=== PATIENT | male | born 1965 | race Caucasian/White ===

== ENCOUNTER → 2017-11-24 | Outpatient (CLI) | payer OTHER ==
--- NOTE | 2017-11-25 05:32 | SPLIT NIGHT TECHNICIAN REPORT ---
[facility] Split Night Polysomnogram - Stamp Classifier Report Study date: 11/24/2017 Referring Physician: Jorje Handy M.D. Name: AUBREE LEE Stamp Classifier: ANYA Campos. Date of : 1965 Height: 52 years, Height 5' 10" Sex: Male Weight: 227 lbs Age: 52 BMI: Medications: 32.57 Metformin 1000 mg, Glimepiride 4 mg, Losartan 25 mg, Cetirizine 10 mg, Fluticasone Propionete 100 mg, Sildenafil Citrate 20-60 mg, Multi Vitamins, Iron 65 mg, Magnesium 500 mg, Potassium Gluconate 550 mg, Patient History 52 yr. old male here for a diagnostic sleep study in room 5. Patient has a history of ELIZ but could never find the correct interface to tolerate CPAP. ESS 12/28. Parameters Monitored NPSG: E1-M2, E2-M1, Fp1-M2, Fp2-M1, F3-M2, F4-M2, F4-M1, C3-M2, C4-M2, C4-M1, O1-M2, O2-M2, O2-M1, T3-M2, T4-M1, P3-M2, P4-M1, CHIN1, CHIN2, HR, EKG, Legs, PFLOW, SNOR, FLOW, CFLOW, Tidal Volume, THOR, ABDO, SpO2, PLTH, CPRESS, ETCO2 Wave, ETCO2, pH SLEEP SUMMARY DATA DIAGNOSTIC TREATMENT Lights Out: 10:36:51 PM 12:44:51 AM Lights On: 12:30:21 AM 5:19:21 AM Total Recording Time (TRT): 113.5 min. 274.5 min. Total Sleep Time (TST): 78.5 min. 217.0 min. NREM Time: 78.5 min. 170.0 min. REM Time: 0.0 min. 47.0 min. Sleep Period Time (SPT): 95.5 min. 258.5 min. Sleep Efficiency (SE): 69 % 79 % Sleep Latency: 17.5 min. 9.5 min. Arousal Index: 43.6 16.0 PAP Treatment Levels: 4, 8/4, 9/5, 10/6, 11/7, 12/7, 13/8, 14/9 * Optimal Pressure(s) SLEEP STAGING DATA DIAGNOSTIC TREATMENT Duration (min) TST % Duration (min) TST % Stage Wake: 35.0 min. -- 57.5 min. -- WASO: 17.5 min. -- 41.5 min. -- NREM: 78.5 min. 100 % 170.0 min. 78 % Stage N1: 28.0 min. 36 % 36.0 min. 17 % Stage N2: 50.5 min. 64 % 114.0 min. 53 % Stage N3: 0.0 min. 0 % 20.0 min. 9 % REM: 0.0 min. 0 % 47.0 min. 22 % POSITIONAL DATA Event Count Index Event Count Index Supine: 70 90 67 71.2 Supine NREM: 70 90.0 66 71.4 Supine REM: N/A N/A 1 60 Non-Supine: 39 73.6 29 10.5 Non-Supine NREM: 39 73.6 29 14.7 Non-Supine REM: N/A N/A 0 0.0 AROUSAL SUMMARY DATA: Event Count Index Event Count Index Apnea Arousals: 26 49.7 41 22.1 Hypopnea Arousals: 17 13.0 6 1.7 Snore Arousals: 8 6.1 3 0.8 PLM Arousals: 6 4.6 4 1.1 Non-Specific Arousals: 1 0.8 4 1.1 Total Arousals: 57 43.6 58 16.0 MYOCLONUS (PLM) Event Count Index Event Count Index PLM: 26 19.9 29 8.0 PLM AROUSAL: 6 4.6 4 1.1 PLM W/O AROUSAL 26 19.9 25 6.9 PLM W/RESP EVENT 6 0.0 3 0.0 MYOCLONUS (PLM) Event Count Index Event Count Index LM: 4 30.6 52 14.4 LM AROUSAL: 4 3.1 2 0.6 LM W/O AROUSAL LM W/RESP EVENT LM NON SPECIFIC 30 22.9 57 15.8 HEART RATE DATA DIAGNOSTIC TREATMENT Sleep (bpm): 60 56 REM (bpm): N/A 93 NREM (bpm): 93 94 Tachycardia Count: 0 0 Tachycardia Duration: 0.00 0 Bradycardia Count: 0 0 Bradycardia Duration: 0.00 0 DIAGNOSTIC PORTION TREATMENT PORTION RESPIRATORY DATA Event Count Index Event Count Index AHI: -- 83.3 -- 26.3 RDI: -- 83.3 -- 27 Obstructive Apnea: 29 22.2 28 7.7 Central Apnea: 31 23.7 50 13.8 Mixed Apnea: 5 3.8 2 0.6 Hypopnea: 44 33.6 15 4.1 RERA: 0 0.0 1 0.3 Total Apneas: 65 49.7 80 22.1 RESPIRATORY DATA REM NREM SLEEP REM NREM SLEEP Supine Position: Obstructive Apneas: N/A 21 21 1 20 21 Central Apneas: N/A 12 12 0 34 34 Mixed Apneas: N/A 3 3 0 2 2 Hypopneas: N/A 34 34 0 10 10 RERA N/A 0 0 0 0 0 Total Supine Events: N/A 70 70 1 66 67 Supine AHI: N/A 90.0 90 60 71.4 71.2 Supine RDI: N/A 90.0 90.0 60.0 71.4 71.2 REM NREM SLEEP REM NREM SLEEP Non-Supine Position: Obstructive Apneas: N/A 8 8 0 7 7 Central Apneas: N/A 19 19 0 16 16 Mixed Apneas: N/A 2 2 0 0 0 Hypopneas: N/A 10 10 0 5 5 RERA N/A 0 0 0 1 1 Total Supine Events: N/A 39 39 0 29 29 Supine AHI: N/A 73.6 73.6 0.0 14.7 10.5 Supine RDI: N/A 73.6 73.6 0.0 15.2 10.8 OXYGEN DESTAURATION DATA: Event Count Index Event Count Index REM Desaturations: N/A N/A 1 1.3 NREM Desaturations: 73 55.8 60 21.2 SNORE DATA DIAGNOSTIC TREATMENT Snore Time: 4.9 12:54:21 AM Snore TST%: 3 5 Snore Arousal Count: 8 3 Snore Arousal Index: 6.1 0.8 Desaturation Event Summary: Minimum %SpO2 Event Count Mean/Min/Max Duration(sec.) Desaturation Index % Time In Bed > 90 149 28.4 / 11.8 / 55.5 24.6 94.4 86 - 90 0 N/A 0.0 5.0 81 - 85 0 N/A 0.0 0.7 76 - 80 0 N/A 0.0 0.0 71 - 75 0 N/A 0.0 0.0 66 - 70 0 N/A 0.0 0.0 61 - 65 0 N/A 0.0 0.0 56 - 60 0 N/A 0.0 0.0 51 - 55 0 N/A 0.0 0.0 < 50 0 N/A 0.0 0.0 OXYGEN SATURATION DATA DIAGNOSTIC TREATMENT SpO2 Mean Sleep: 93 % 94 % SpO2 Mean REM: N/A % 93 % SpO2 Mean NREM: 93 % 94 % SpO2 Minimum Sleep: 81 % 85 % SpO2 Minimum REM: N/A % 87 % SpO2 Minimum NREM: 81 % 85 % Time Below 90% (TST): 9.3 3.0 Time Below 88% (TST): 4.8 0.9 Total REM NREM Awake <50% 0.0 min. 0.0 min. 0.0 min. 0.0 min. 51 - 60% 0.0 min. 0.0 min. 0.0 min. 0.0 min. 61 - 70% 0.0 min. 0.0 min. 0.0 min. 0.0 min. 71 - 80% 0.0 min. 0.0 min. 0.0 min. 0.0 min. 81 - 90% 21.6 min. 0.2 min. 17.2 min. 4.2 min. 91 - 100% 363.8 min. 46.8 min. 231.2 min. 85.9 min. Average 94 93 94 94 Minimum SpO2 81 87 81 83 Desaturation Event Index 23.0 1.3 32.1 10.4 # Desat. Events below 89% 47 1 42 4 Time(%) with Saturation below 89% 2.9 0.0 2.2 0.6 Time(min.) with Saturation below 89% 11.0 0.1 8.4 2.5 Recording Stamp Classifier Comments: Mr. Lee slept in the right and supine positions. No cardiac arrhythmia or PLMs noted. No bruxism noted. Snoring was noted and scored as a 3 on a scale of 0 through 5. (0=no snoring, 5=snoring loud enough to be heard through a closed door or down the [address]. At 12:30 am Mr. Lee met specific Split-Night criteria during the diagnostic portion of this study. CPAP was initiated at +4 CMH2O room air and was switched to BIPAP for central apneas PAP initiated at an IPAP of +8 CMH2O and an EPAP of +4 CMH2O up-titrated to a level of: IPAP +12 CMH2O, EPAP + 7 CMH20 BiFlex 1. A medium Mota and Paykel Simplus used during titration. Mr. Lee awoke to use the restroom once during the night. Mr. Lee stated, "(Example) I did not sleep as well as I do when I am in my own bed". The final report will be interpreted and signed by a sleep physician. The completed physician report will then be placed in the patient medical record. Therapy Event: Therapy (cm H20) 0 4 804/11 Total Time at Pressure (min.) 113.5 43.8 6.7 38.0 39.0 33.0 94.5 11.1 8.4 TST at Pressure (min.) 78.5 12.3 6.7 27.0 38.5 33.0 90.0 8.5 1.0 # Periods 1 1 1 1 1 1 1 1 1 Sleep Onset (min.) 17.5 9.5 0.0 0.0 0.0 0.0 0.0 0.0 0.9 REM Onset (min.) N/A N/A N/A N/A 5.5 N/A 12.0 9.5 N/A Sleep Efficiency % 69 28 100 71 98 100 95 76 11 Wakefulness (%) 30.8 71.9 0.0 28.9 1.3 0.0 4.8 23.6 88.1 Wakefulness (min.) 35.0 31.5 0.0 11.0 0.5 0.0 4.5 2.6 7.4 NREM 1 (%) 24.7 26.9 32.8 35.6 5.1 1.5 3.7 13.5 11.9 NREM 1 (min.) 28.0 11.8 2.2 13.5 2.0 0.5 3.5 1.5 1.0 NREM 2 (%) 44.5 1.1 67.2 35.5 37.2 37.9 66.1 53.9 0.0 NREM 2 (min.) 50.5 0.5 4.5 13.5 14.5 12.5 62.5 6.0 0.0 NREM 3 (%) 0.0 0.0 0.0 0.0 0.0 60.6 0.0 0.0 0.0 NREM 3 (min.) 0.0 0.0 0.0 0.0 0.0 20.0 0.0 0.0 0.0 REM (%) 0.0 0.0 0.0 0.0 56.4 0.0 25.4 9.0 0.0 REM (min.) 0.0 0.0 0.0 0.0 22.0 0.0 24.0 1.0 0.0 # Arousals 57 9 5 25 5 2 8 3 1 Arousal Index 43.6 43.9 44.8 55.5 7.8 3.6 5.3 21.2 60.0 # Snore 137 10 9 27 14 145 20 9 0 Snore Index 104.7 48.8 80.7 59.9 21.8 263.8 13.3 63.7 0.0 AHI 83.3 83.0 71.7 77.7 15.6 5.5 9.3 49.5 60.0 AHI Supine 90.0 94.5 71.7 78.2 N/A N/A 36.8 49.5 60.0 AHI Non-Supine 73.6 0.0 N/A 74.8 15.6 5.5 7.2 N/A N/A NREM AHI 83.3 83.0 71.7 77.7 36.4 5.5 12.7 48.1 60.0 REM AHI N/A N/A N/A N/A 0.0 N/A 0.0 60.0 N/A RDI 83.3 83.0 71.7 77.7 17.1 5.5 9.3 49.5 60.0 # Obstructive 29 1 3 10 4 2 3 5 0 # Central Ap 31 15 2 19 3 1 8 1 1 # Mixed 5 0 0 2 0 0 0 0 0 # Hypopneas 44 1 3 4 3 0 3 1 0 RERAS 0 0 0 0 1 0 0 0 0 Total Respiratory Events 109 17 8 35 11 3 14 7 1 Time Below SpO2 89.00% (min.) 6.8 0.5 0.3 0.5 0.5 0.0 0.0 0.1 0.0 Mean NREM SpO2 (%) 93 93 93 95 94 94 94 95 97 Mean REM SpO2 (%) N/A N/A N/A N/A 93 N/A 94 93 N/A Mean Sleep SpO2 (%) 93 93 93 95 93 94 94 95 97 Min NREM SpO2 (%) 81 85 87 86 87 90 90 92 96 Min REM SpO2 (%) N/A N/A N/A N/A 92 N/A 92 87 N/A Position Supine (min.) 46.7 10.8 6.7 23.0 0.0 0.0 6.5 8.5 1.0 Position Non-supine (min.) 31.8 1.5 0.0 4.0 38.5 33.0 83.5 0.0 0.0 LM Index Sleep 50.4 34.2 44.8 28.9 6.2 18.2 20.0 63.7 180.0 LM Index NREM 50.4 34.2 44.8 28.9 10.9 18.2 24.5 72.2 180.0 LM Index REM N/A N/A N/A N/A 2.7 N/A 7.5 0.0 N/A Mean Heart Rate (bpm) 60 55 54 55 58 56 55 51 57 Min Heart Rate (bpm) 48 48 50 47 48 49 47 47 53
--- NOTE | 2017-11-25 06:08 | SPLIT NIGHT TECHNICIAN REPORT ---
[facility] Split Night Polysomnogram - Buyer Liaison Report Study date: 11/24/2017 Referring Physician: Jorje Handy M.D. Name: AUBREE LEE Buyer Liaison: ANYA Campos. Date of : 1965 Height: 52 years, Height 5' 10" Sex: Male Weight: 227 lbs Age: 52 BMI: Medications: 32.57 Metformin 1000 mg, Glimepiride 4 mg, Losartan 25 mg, Cetirizine 10 mg, Fluticasone Propionete 100 mg, Sildenafil Citrate 20-60 mg, Multi Vitamins, Iron 65 mg, Magnesium 500 mg, Potassium Gluconate 550 mg, Patient History 52 yr. old male here for a diagnostic sleep study in room 5. Patient has a history of ELIZ but could never find the correct interface to tolerate CPAP. ESS 12/28. Parameters Monitored NPSG: E1-M2, E2-M1, Fp1-M2, Fp2-M1, F3-M2, F4-M2, F4-M1, C3-M2, C4-M2, C4-M1, O1-M2, O2-M2, O2-M1, T3-M2, T4-M1, P3-M2, P4-M1, CHIN1, CHIN2, HR, EKG, Legs, PFLOW, SNOR, FLOW, CFLOW, Tidal Volume, THOR, ABDO, SpO2, PLTH, CPRESS, ETCO2 Wave, ETCO2, pH SLEEP SUMMARY DATA DIAGNOSTIC TREATMENT Lights Out: 10:36:51 PM 12:44:51 AM Lights On: 12:38:21 AM 5:19:21 AM Total Recording Time (TRT): 121.5 min. 274.5 min. Total Sleep Time (TST): 83.0 min. 217.0 min. NREM Time: 83.0 min. 170.0 min. REM Time: 0.0 min. 47.0 min. Sleep Period Time (SPT): 100.5 min. 258.5 min. Sleep Efficiency (SE): 68 % 79 % Sleep Latency: 17.5 min. 9.5 min. Arousal Index: 41.9 16.0 PAP Treatment Levels: 4, 8/4, 9/5, 10/6, 11/7, 12/7, 13/8, 14/9 * Optimal Pressure(s) SLEEP STAGING DATA DIAGNOSTIC TREATMENT Duration (min) TST % Duration (min) TST % Stage Wake: 38.5 min. -- 57.5 min. -- WASO: 21.0 min. -- 41.5 min. -- NREM: 83.0 min. 100 % 170.0 min. 78 % Stage N1: 28.5 min. 34 % 36.0 min. 17 % Stage N2: 54.5 min. 66 % 114.0 min. 53 % Stage N3: 0.0 min. 0 % 20.0 min. 9 % REM: 0.0 min. 0 % 47.0 min. 22 % POSITIONAL DATA Event Count Index Event Count Index Supine: 70 90 67 71.2 Supine NREM: 70 90.0 66 71.4 Supine REM: N/A N/A 1 60 Non-Supine: 39 64.4 29 10.5 Non-Supine NREM: 39 64.4 29 14.7 Non-Supine REM: N/A N/A 0 0.0 AROUSAL SUMMARY DATA: Event Count Index Event Count Index Apnea Arousals: 26 47.0 41 22.1 Hypopnea Arousals: 17 12.3 6 1.7 Snore Arousals: 9 6.5 3 0.8 PLM Arousals: 6 4.3 4 1.1 Non-Specific Arousals: 1 0.7 4 1.1 Total Arousals: 58 41.9 58 16.0 MYOCLONUS (PLM) Event Count Index Event Count Index PLM: 26 18.8 29 8.0 PLM AROUSAL: 6 4.3 4 1.1 PLM W/O AROUSAL 26 18.8 25 6.9 PLM W/RESP EVENT 6 0.0 3 0.0 MYOCLONUS (PLM) Event Count Index Event Count Index LM: 4 31.1 52 14.4 LM AROUSAL: 4 2.9 2 0.6 LM W/O AROUSAL LM W/RESP EVENT LM NON SPECIFIC 33 23.9 57 15.8 HEART RATE DATA DIAGNOSTIC TREATMENT Sleep (bpm): 59 56 REM (bpm): N/A 93 NREM (bpm): 93 94 Tachycardia Count: 0 0 Tachycardia Duration: 0.00 0 Bradycardia Count: 0 0 Bradycardia Duration: 0.00 0 DIAGNOSTIC PORTION TREATMENT PORTION RESPIRATORY DATA Event Count Index Event Count Index AHI: -- 78.8 -- 26.3 RDI: -- 78.8 -- 27 Obstructive Apnea: 29 21.0 28 7.7 Central Apnea: 31 22.4 50 13.8 Mixed Apnea: 5 3.6 2 0.6 Hypopnea: 44 31.8 15 4.1 RERA: 0 0.0 1 0.3 Total Apneas: 65 47.0 80 22.1 RESPIRATORY DATA REM NREM SLEEP REM NREM SLEEP Supine Position: Obstructive Apneas: N/A 21 21 1 20 21 Central Apneas: N/A 12 12 0 34 34 Mixed Apneas: N/A 3 3 0 2 2 Hypopneas: N/A 34 34 0 10 10 RERA N/A 0 0 0 0 0 Total Supine Events: N/A 70 70 1 66 67 Supine AHI: N/A 90.0 90 60 71.4 71.2 Supine RDI: N/A 90.0 90.0 60.0 71.4 71.2 REM NREM SLEEP REM NREM SLEEP Non-Supine Position: Obstructive Apneas: N/A 8 8 0 7 7 Central Apneas: N/A 19 19 0 16 16 Mixed Apneas: N/A 2 2 0 0 0 Hypopneas: N/A 10 10 0 5 5 RERA N/A 0 0 0 1 1 Total Supine Events: N/A 39 39 0 29 29 Supine AHI: N/A 64.4 64.4 0.0 14.7 10.5 Supine RDI: N/A 64.4 64.4 0.0 15.2 10.8 OXYGEN DESTAURATION DATA: Event Count Index Event Count Index REM Desaturations: N/A N/A 1 1.3 NREM Desaturations: 76 54.9 60 21.2 SNORE DATA DIAGNOSTIC TREATMENT Snore Time: 5.6 12:54:21 AM Snore TST%: 3 5 Snore Arousal Count: 9 3 Snore Arousal Index: 6.5 0.8 Desaturation Event Summary: Minimum %SpO2 Event Count Mean/Min/Max Duration(sec.) Desaturation Index % Time In Bed > 90 153 28.2 / 11.8 / 55.5 24.7 94.4 86 - 90 0 N/A 0.0 4.9 81 - 85 0 N/A 0.0 0.6 76 - 80 0 N/A 0.0 0.0 71 - 75 0 N/A 0.0 0.0 66 - 70 0 N/A 0.0 0.0 61 - 65 0 N/A 0.0 0.0 56 - 60 0 N/A 0.0 0.0 51 - 55 0 N/A 0.0 0.0 < 50 0 N/A 0.0 0.0 OXYGEN SATURATION DATA DIAGNOSTIC TREATMENT SpO2 Mean Sleep: 93 % 94 % SpO2 Mean REM: N/A % 93 % SpO2 Mean NREM: 93 % 94 % SpO2 Minimum Sleep: 81 % 85 % SpO2 Minimum REM: N/A % 87 % SpO2 Minimum NREM: 81 % 85 % Time Below 90% (TST): 9.3 3.0 Time Below 88% (TST): 4.8 0.9 Total REM NREM Awake <50% 0.0 min. 0.0 min. 0.0 min. 0.0 min. 51 - 60% 0.0 min. 0.0 min. 0.0 min. 0.0 min. 61 - 70% 0.0 min. 0.0 min. 0.0 min. 0.0 min. 71 - 80% 0.0 min. 0.0 min. 0.0 min. 0.0 min. 81 - 90% 21.9 min. 0.2 min. 17.2 min. 4.5 min. 91 - 100% 371.4 min. 46.8 min. 235.7 min. 88.9 min. Average 94 93 94 95 Minimum SpO2 81 87 81 83 Desaturation Event Index 23.2 1.3 32.3 10.6 # Desat. Events below 89% 47 1 42 4 Time(%) with Saturation below 89% 2.8 0.0 2.1 0.6 Time(min.) with Saturation below 89% 11.0 0.1 8.4 2.5 Recording Buyer Liaison Comments: Mr. Lee slept in the right and supine positions. No cardiac arrhythmia or PLMs noted. No bruxism noted. Snoring was noted and scored as a 3 on a scale of 0 through 5. (0=no snoring, 5=snoring loud enough to be heard through a closed door or down the [address]. At 12:30 am Mr. Lee met specific Split-Night criteria during the diagnostic portion of this study. CPAP was initiated at +4 CMH2O room air and was switched to BIPAP for central apneas PAP initiated at an IPAP of +8 CMH2O and an EPAP of +4 CMH2O up-titrated to a level of: IPAP +12 CMH2O, EPAP + 7 CMH20 BiFlex 1. A medium Mota and Paykel Simplus used during titration. Mr. Lee awoke to use the restroom once during the night. Mr. Lee stated, "I slept worse with CPAP and did not like that pressure or mask ". The final report will be interpreted and signed by a sleep physician. The completed physician report will then be placed in the patient medical record. Therapy Event: Therapy (cm H20) 0 4 03/10 04/11 05/12 06/13 07/13 19/03 14 Total Time at Pressure (min.) 121.5 43.8 6.7 38.0 39.0 33.0 94.5 11.1 8.4 TST at Pressure (min.) 83.0 12.3 6.7 27.0 38.5 33.0 90.0 8.5 1.0 # Periods 1 1 1 1 1 1 1 1 1 Sleep Onset (min.) 17.5 9.5 0.0 0.0 0.0 0.0 0.0 0.0 0.9 REM Onset (min.) N/A N/A N/A N/A 5.5 N/A 12.0 9.5 N/A Sleep Efficiency % 68 28 100 71 98 100 95 76 11 Wakefulness (%) 31.7 71.9 0.0 28.9 1.3 0.0 4.8 23.6 88.1 Wakefulness (min.) 38.5 31.5 0.0 11.0 0.5 0.0 4.5 2.6 7.4 NREM 1 (%) 23.5 26.9 32.8 35.6 5.1 1.5 3.7 13.5 11.9 NREM 1 (min.) 28.5 11.8 2.2 13.5 2.0 0.5 3.5 1.5 1.0 NREM 2 (%) 44.9 1.1 67.2 35.5 37.2 37.9 66.1 53.9 0.0 NREM 2 (min.) 54.5 0.5 4.5 13.5 14.5 12.5 62.5 6.0 0.0 NREM 3 (%) 0.0 0.0 0.0 0.0 0.0 60.6 0.0 0.0 0.0 NREM 3 (min.) 0.0 0.0 0.0 0.0 0.0 20.0 0.0 0.0 0.0 REM (%) 0.0 0.0 0.0 0.0 56.4 0.0 25.4 9.0 0.0 REM (min.) 0.0 0.0 0.0 0.0 22.0 0.0 24.0 1.0 0.0 # Arousals 58 9 5 25 5 2 8 3 1 Arousal Index 41.9 43.9 44.8 55.5 7.8 3.6 5.3 21.2 60.0 # Snore 164 10 9 27 14 145 20 9 0 Snore Index 118.6 48.8 80.7 59.9 21.8 263.8 13.3 63.7 0.0 AHI 78.8 83.0 71.7 77.7 15.6 5.5 9.3 49.5 60.0 AHI Supine 90.0 94.5 71.7 78.2 N/A N/A 36.8 49.5 60.0 AHI Non-Supine 64.4 0.0 N/A 74.8 15.6 5.5 7.2 N/A N/A NREM AHI 78.8 83.0 71.7 77.7 36.4 5.5 12.7 48.1 60.0 REM AHI N/A N/A N/A N/A 0.0 N/A 0.0 60.0 N/A RDI 78.8 83.0 71.7 77.7 17.1 5.5 9.3 49.5 60.0 # Obstructive 29 1 3 10 4 2 3 5 0 # Central Ap 31 15 2 19 3 1 8 1 1 # Mixed 5 0 0 2 0 0 0 0 0 # Hypopneas 44 1 3 4 3 0 3 1 0 RERAS 0 0 0 0 1 0 0 0 0 Total Respiratory Events 109 17 8 35 11 3 14 7 1 Time Below SpO2 89.00% (min.) 6.8 0.5 0.3 0.5 0.5 0.0 0.0 0.1 0.0 Mean NREM SpO2 (%) 93 93 93 95 94 94 94 95 97 Mean REM SpO2 (%) N/A N/A N/A N/A 93 N/A 94 93 N/A Mean Sleep SpO2 (%) 93 93 93 95 93 94 94 95 97 Min NREM SpO2 (%) 81 85 87 86 87 90 90 92 96 Min REM SpO2 (%) N/A N/A N/A N/A 92 N/A 92 87 N/A Position Supine (min.) 46.7 10.8 6.7 23.0 0.0 0.0 6.5 8.5 1.0 Position Non-supine (min.) 36.3 1.5 0.0 4.0 38.5 33.0 83.5 0.0 0.0 LM Index Sleep 49.9 34.2 44.8 28.9 6.2 18.2 20.0 63.7 180.0 LM Index NREM 49.9 34.2 44.8 28.9 10.9 18.2 24.5 72.2 180.0 LM Index REM N/A N/A N/A N/A 2.7 N/A 7.5 0.0 N/A Mean Heart Rate (bpm) 59 55 54 55 58 56 55 51 57 Min Heart Rate (bpm) 48 48 50 47 48 49 47 47 53
--- NOTE | 2017-11-28 19:06 | POLYSOMNOGRAPH REPORT ---
CLINICAL DATA: A 52-year-old male with BMI of 32.[address] Chance and Dr. Carrington for evaluation of sleep apnea. I saw the patient in clinic and scheduled a sleep study which was performed on the evening of 11/24/2017. This was a split night study. SLEEP ARCHITECTURE: For the diagnostic portion of the study, sleep period time was 100.5 minutes. Total sleep time was 83 minutes, all non-REM sleep. Sleep latency was 17.5 minutes. Sleep efficiency was 68%. Sleep consisted of stage N1 of 34% and stage N2 of 66%. For the treatment portion of the study, sleep period time was 258.5 minutes. Total sleep time was 217 minutes divided between 170 minutes non-REM sleep and 47 minutes of REM sleep. Sleep latency was 9.5 minutes. Sleep efficiency was 79%. Sleep consisted of stage N1 of 17%, stage N2 of 53%, stage N3 of 9%, and REM 22%. AROUSAL DATA: Prior to treatment, 58 arousals were recorded for an arousal index of 42 per hour. During treatment, 58 arousals were recorded for an index of 16/ hour. PLM DATA: Prior to treatment, 33 limb movements during sleep were noted for an index of 23.9 per hour. During treatment, 57 limb movements during sleep were noted for an index of 15.8 per hour. EKG: Heart rates ranged from 56 to 94 beats per minute. No arrhythmias were noted. RESPIRATORY DATA: Prior to treatment, very severe sleep apnea was documented. The AHI was 78.8. There were 29 obstructive, 31 central, and 5 mixed apneic episodes. There were 44 hypopneic episodes. The average AHI during treatment was 26.3. There were 28 obstructive, 50 central, and 2 mixed apneic episodes. There were 15 hypopneic episodes during treatment. OXIMETRY DATA: Nocturnal hypoxemia was seen prior to treatment. Oxygen marilou was 81% during non-REM sleep prior to treatment. Mean saturation with treatment was 94%. EXHIBITION CARVER'S COMMENTS AND TREATMENT SUMMARY: The patient slept in the right and supine positions. Snoring was severe, rated 3 on a scale of 1 through 5. At 12:30 a.m., he met split night criteria. He used a medium Mota and Paykel Simplus mask. He was initially started on CPAP but developed treatment onset central apneic episodes and was switched to BiPAP. He was titrated up to a final pressure setting of 14/9 but still had continued apneas and hypopneas. His best AHI was achieved at / with an AHI of 5.5. IMPRESSION: Severe sleep apnea/hypopnea, improved but not totally corrected with BiPAP 06/13. RECOMMENDATIONS: The patient could be considered for auto CPAP or treatment with BiPAP at the above settings. Clinical correlation is needed. RAMONA
== END ==
LOC: C.NEUR 15:43
PROVIDERS: ATTEND Internal Medicine Pulmonary Disease
DX: G47.33 Obstructive sleep apnea (adult) (pediatric) (principal); J34.2 Deviated nasal septum; J30.9 Allergic rhinitis, unspecified